=== PATIENT | male | born 1950 ===

== ENCOUNTER 2017-12-22 14:29 | Emergency (ER) | payer BC, OTHER ==
--- NOTE | 2017-12-22 17:19 | UC ---
Back Pain HPI - HPI Summary HPI Summary: PT TWEAKED HIS BACK ABOUT 2 WEEKS AGO. NO TRAUMA. WAS SITTING AT HIS DESK WHEN HE WENT TO STAND UP AND FELT PAIN RIGHT LOW BACK. SEEMED TO IMPROVE UNTIL TODAY WHEN IT SUDDENLY STARTED TO BOTHER HIM AGAIN. NO INJURY. CAN NOT TAKE NSAIDS DUE TO WARFARIN. NO NUMBNESS/TINGLING OR SADDLE ANESTHESIA. NO LOSS OF BOWEL OR BLADDER CONTROL. - History of Current Complaint Chief Complaint: UCBackPain Stated Complaint: BACK PAIN Time Seen by Provider: 12/22/17 16:56 Hx Obtained From: Patient Onset/Duration: Gradual Onset, Lasting Days, Still Present Timing: Constant Severity Initially: Moderate Severity Currently: Moderate Pain Intensity: 7 Pain Scale Used: 0-10 Numeric Back Pain: Is Discrete @ - RIGHT LOW BACK Character: Sharp, Spasmodic Aggravating Factor(s): Movement Alleviating Factor(s): Rest, Position Associated Signs And Symptoms: Positive: Negative - Allergies/Home Medications Allergies/Adverse Reactions: Allergies Allergy/AdvReac Type Severity Reaction Status Date / Time No Known Allergies Allergy Verified 12/22/17 15:24 Home Medications: Home Medications Canagliflozin (NF) [Invokana (NF)] 1 tab PO DAILY 12/22/17 [History Confirmed ] PMH/Surg Hx/FS Hx/Imm Hx Endocrine History: Diabetes Cardiovascular History: Cardiac Disease, Hypertension Other History Of: Anticoagulant Therapy - for AFib - Surgical History Surgical History: Yes Surgery Procedure, Year, and Place: Quad bypass 2009, Nasal polyps 1967,1974/ 1975, 1999; tonselectomy as child, 1961 on toes, - Family History Known Family History: Positive: Cardiac Disease, Hypertension - Social History Alcohol Use: None Substance Use Type: None Smoking Status (MU): Never Smoked Tobacco - Immunization History Most Recent Tetanus Shot: ukn Review of Systems Constitutional: Negative Skin: Negative Respiratory: Negative Cardiovascular: Negative Gastrointestinal: Negative Musculoskeletal: Decreased ROM, Myalgia All Other Systems Reviewed And Are Negative: Yes Physical Exam Triage Information Reviewed: Yes Appearance: Well-Appearing, Pain Distress - MOD, Obese Vital Signs: Initial Vital Signs Temp 97.3 F 12/22/17 15:19 Pulse 89 12/22/17 15:19 Resp 16 12/22/17 15:19 BP 130/80 12/22/17 15:19 Pulse Ox 98 12/22/17 15:19 Vital Signs Reviewed: Yes Eyes: Positive: Conjunctiva Clear ENT: Positive: Hearing grossly normal Neck: Positive: Supple Respiratory: Positive: No respiratory distress, No accessory muscle use Cardiovascular: Positive: Pulses Normal Abdomen Description: Positive: Soft Musculoskeletal: Positive: No Edema, ROM Limited @ - BACK Neurological: Positive: Alert Psychological: Positive: Age Appropriate Behavior Skin: Negative: rashes Back Pain Course/Dx - Differential Dx/Diagnosis Provider Diagnoses: ACUTE LOW BACK STRAIN Discharge - Discharge Plan Condition: Stable Disposition: HOME Prescriptions: Acetaminop/Codeine 30 MG TAB* [Tylenol/Codeine 30 MG TAB*] 1 - 2 tab PO Q6H PRN #20 tab MDD 8 PRN Reason: Pain Cyclobenzaprine TAB* [Flexeril TAB*] 10 mg PO BID PRN #30 tab PRN Reason: Pain Patient Education Materials: Low Back Strain (ED) Referrals: Rommel Angulo MD [Primary Care Provider] - 2 Weeks Additional Instructions: BE SURE TO GO THROUGH SLOW RANGE OF MOTION AND STRETCHING EXERCISES DAILY YOU ARE ABLE TO PREVENT STIFFENING UP AND MAKING THE DISCOMFORT WORSE. REST, HEAT, MASSAGE. REFERRAL FOR PHYSICAL THERAPY PROVIDED TODAY. FOLLOW-UP WITH YOUR PCP.
[2017-12-22 17:32] VITALS: BP 121/91
== END 2017-12-22 17:33 | disposition home or self-care (01) ==
LOC: UCEAST 14:29
DX: S39.012A Strain of muscle, fascia and tendon of lower back, initial encounter (principal); X58.XXXA Exposure to other specified factors, initial encounter; Y93.9 Activity, unspecified; Y92.9 Unspecified place or not applicable; E11.9 Type 2 diabetes mellitus without complications; Z79.84 Long term (current) use of oral hypoglycemic drugs; I11.9 Hypertensive heart disease without heart failure; I48.91 Unspecified atrial fibrillation; Z79.01 Long term (current) use of anticoagulants; Z95.1 Presence of aortocoronary bypass graft
CPT/HCPCS: 99212; G0463